=== PATIENT | male | born 1990 | race Caucasian/White ===

== ENCOUNTER 2020-04-27 20:52 | Emergency (ER) | payer SELFPAY ==
[~2020-04-27] VITALS: Ht 188 cm; Wt 100.0 kg
[2020-04-27 21:10] VITALS: BP 126/72
--- NOTE | 2020-04-27 21:17 | PHYS DOC ---
Past History Past Medical History: Anxiety, Depression Past Surgical History: Appendectomy Alcohol Use: None General Adult EDM: Chief Complaint: DEPRESSION HPI: HPI: "...I got exposed to smoke.. a couple years ago...But...I just need somewhere to sleep... I was at [facility] earlier... and they [facility]... but the [facility] is closed now... I get anxiety.. especially after I do Meth... which I did earlier .." Patient is a 29 year old male who presents with above hx and complaints he is home less and needs a place to sleep. Patient does admit to methamphetamine abuse. Does have history of ADHD, autism, and prior poly-substance abuse. Patient reportedly seen at [facility] earlier in the day and he was advised to follow-up with counseling center and [facility]. Patient states by the time he arrived at shelters they had closed the doors for the night. Patient denies any recent trauma. Patient does smoke tobacco. Patient denies suicidal ideation or homicidal ideation. Does state he gets depressed and that is why he uses methamphetamine. Review of Systems: Review of Systems: Constitutional: Denies fever or chills Eyes: Denies change in visual acuity HENT: Denies nasal congestion or sore throat Respiratory: Denies cough or shortness of breath Cardiovascular: Denies chest pain or edema GI: Denies abdominal pain, nausea, vomiting, bloody stools or diarrhea : Denies dysuria Musculoskeletal: Denies back pain or joint pain Integument: Denies rash Neurologic: Denies headache, focal weakness or sensory changes Endocrine: Denies polyuria or polydipsia Lymphatic: Denies swollen glands Psychiatric: Denies depression or anxiety Heart Score: Risk Factors: Risk Factors: DM, Current or recent (<one month) smoker, HTN, HLP, family history of CAD, obesity. Risk Scores: Score 0 - 3: 2.5% MACE over next 6 weeks - Discharge Home Score 4 - 6: 20.3% MACE over next 6 weeks - Admit for Clinical Observation Score 7 - 10: 72.7% MACE over next 6 weeks - Early Invasive Strategies Family History: Family History: Noncontributory Current Medications: Current Meds: See nursing for home meds Allergies: Allergies: Allergies Coded Allergies Type Severity Reaction Last Updated Verified No Known Drug Allergies 04/27/20 No Physical Exam: PE: Constitutional: no acute distress, non-toxic appearance. [] HENT: Normocephalic, atraumatic, bilateral external ears normal, oropharynx moist, no oral exudates, nose normal. Poor dentition Eyes: PERRLA, EOMI, conjunctiva normal, no discharge. [] Neck: Normal range of motion, no tenderness, supple, no stridor. [] Cardiovascular:Heart rate regular rhythm, no murmur [] Lungs & Thorax: Bilateral breath sounds equal apex with scattered wheezes on auscultation [] Abdomen: Bowel sounds normal, soft, no tenderness, no masses, no pulsatile m asses. [] Skin: Warm, dry, no erythema, no rash. [] Back: No tenderness, no CVA tenderness. [] Extremities: No tenderness, no cyanosis, no clubbing, ROM intact, no edema. No cording appreciated Neurologic: Alert and oriented X 3, normal motor function, normal sensory function, no focal deficits noted. [] Psychologic: Affect anxious, judgement normal, mood normal. [] Denies suicidal or homicidal ideation EKG: EKG: [] Radiology/Procedures: Radiology/Procedures: [] Course & Med Decision Making: Course & Med Decision Making Pertinent Labs and Imaging studies reviewed. (See chart for details) Pt. refused labs draws or urine sample . States he just wants to sleep in a cool place tonight. Patient encouraged to follow-up at counseling center. Patient encouraged to stop smoking. Patient encouraged to stop use of methamphetamine. Patient follow-up primary care. Impression: 1. Anxiety 2. Polysubstance Abuse 3. Hx. ADHD 4, Hx. of Autism spectrum disorder. 5. Hx. of Depression [] Dragon Disclaimer: Dragon Disclaimer: This electronic medical record was generated, in whole or in part, using a voice recognition dictation system. Departure Departure: Disposition: 01 HOME/RESIDENCE PRIOR TO ADM Condition: STABLE Justification of Admission: Justification of Admission: Justification of Admission Dx: N/A Dragon Disclaimer This chart was dictated in whole or in part using Voice Recognition software in a busy, high-work load, and often noisy Emergency Department environment. It may contain unintended and wholly unrecognized errors or omissions. TIERA LEMONS MD Apr 27, 2020 21:16
== END 2020-04-27 21:54 | disposition left against medical advice (07) ==
LOC: ER 20:52
DX: F41.9 Anxiety disorder, unspecified (principal); F32.9 Major depressive disorder, single episode, unspecified; F90.9 Attention-deficit hyperactivity disorder, unspecified type; F19.10 Other psychoactive substance abuse, uncomplicated; F84.0 Autistic disorder; F15.10 Other stimulant abuse, uncomplicated; Z59.0 Homelessness
CPT/HCPCS: 99283

== ENCOUNTER 2020-04-28 07:05 | Emergency (ER) | payer SELFPAY ==
[~2020-04-28] VITALS: Ht 195.6 cm; Wt 90.1 kg
[2020-04-28 07:29] VITALS: BP 127/85
[2020-04-28 07:55] LABS: BASO % 1 % (0-3); EOS # 0.2 x10^3/uL (0.0-0.7); EOS % 4 % (0-3); HEMATOCRIT 38.7 % (39.0-53.0); HEMOGLOBIN 13.3 g/dL (13.0-17.5); LYMPH # 1.8 x10^3/uL (1.0-4.8); LYMPH % 28 % (24-48); MEAN CORPUSCULAR HEMOGLOBIN 29 pg (25-35); MEAN CORPUSCULAR HGB CONC 34 g/dL (31-37); MEAN CORPUSCULAR VOLUME 86 fL (79-100); MONO # 0.5 x10^3/uL (0.0-1.1); MONO % 8 % (0-9); NEUT # 3.6 x10^3uL (1.8-7.7); NEUT % 59 % (31-73); PLATELET COUNT 264 x10^3/uL (140-400); RED BLOOD COUNT 4.52 x10^6/uL (4.30-5.70); RED CELL DISTRIBUTION WIDTH 15.4 % (11.5-14.5); WHITE BLOOD COUNT 6.2 x10^3/uL (4.0-11.0)
[2020-04-28 08:04] LABS: CALCIUM 8.9 mg/dL (8.5-10.1); CREATININE 1.3 mg/dL (0.7-1.3); GFR 65.7; POTASSIUM 3.4 mmol/L (3.5-5.1)
[2020-04-28 08:11] LABS: ALBUMIN 3.9 g/dL (3.4-5.0); ALBUMIN/GLOBULIN RATIO 1.1 (1.0-1.7); TOTAL BILIRUBIN 0.7 mg/dL (0.2-1.0); TOTAL PROTEIN 7.5 g/dL (6.4-8.2)
[2020-04-28 08:27] LABS: AMPHETAMINE/METHAMPHETAMINE POS (NEG); BARBITURATES NEG (NEG); BENZODIAZEPINES NEG (NEG); CANNABINOIDS NEG (NEG); COCAINE NEG (NEG); METHADONE NEG (NEG); OPIATES NEG (NEG); PHENCYCLIDINE NEG (NEG)
--- NOTE | 2020-04-28 08:33 | PHYS DOC ---
Past History Past Medical History: Anxiety, Depression Past Surgical History: Appendectomy Alcohol Use: None General Adult EDM: Chief Complaint: SUICIDAL IDEATION HPI: HPI: Patient is a 29-year-old male who presented to ER by EMS due to suicidal ideation. Patient is homeless, he is said he been suicidal for about 2 years. Patient has been in and out of the ER at multiple hospital for the same problem. Patient was evaluated at [facility] last night for the same complaint, he was just discharged home from the ED there. Patient was sleeping in the parking lot, and then called EMS to take him here for evaluation. Patient is not very specific about his suicidal ideation. Patient did not have any specific plan. Patient had no access to gun. He is homeless, he lives in a homeless fdc. He denies any alcohol consumption recently. Patient is not on any medication for psychiatric problem. Review of Systems: Review of Systems: Constitutional: Denies fever or chills Eyes: Denies change in visual acuity HENT: Denies nasal congestion or sore throat Respiratory: Denies cough or shortness of breath Cardiovascular: Denies chest pain or edema GI: Denies abdominal pain, nausea, vomiting, bloody stools or diarrhea : Denies dysuria Musculoskeletal: Denies back pain or joint pain Integument: Denies rash Neurologic: Denies headache, focal weakness or sensory changes Endocrine: Denies polyuria or polydipsia Lymphatic: Denies swollen glands Psychiatric: Positive for depression, suicidal ideation. Heart Score: Risk Factors: Risk Factors: DM, Current or recent (<one month) smoker, HTN, HLP, family history of CAD, obesity. Risk Scores: Score 0 - 3: 2.5% MACE over next 6 weeks - Discharge Home Score 4 - 6: 20.3% MACE over next 6 weeks - Admit for Clinical Observation Score 7 - 10: 72.7% MACE over next 6 weeks - Early Invasive Strategies Allergies: Allergies: Allergies Coded Allergies Type Severity Reaction Last Updated Verified No Known Drug Allergies 04/27/20 No Physical Exam: PE: Constitutional: Well developed, well nourished, no acute distress, non-toxic appearance. [] HENT: Normocephalic, atraumatic, bilateral external ears normal, oropharynx moist, no oral exudates, nose normal. [] Eyes: PERRLA, EOMI, conjunctiva normal, no discharge. [] Neck: Normal range of motion, no tenderness, supple, no stridor. [] Cardiovascular:Heart rate regular rhythm, no murmur [] Lungs & Thorax: Bilateral breath sounds clear to auscultation [] Abdomen: Bowel sounds normal, soft, no tenderness, no masses, no pulsatile masses. [] Skin: Warm, dry, no erythema, no rash. [] Back: No tenderness, no CVA tenderness. [] Extremities: No tenderness, no cyanosis, no clubbing, ROM intact, no edema. [] Neurologic: Alert and oriented X 3, normal motor function, normal sensory function, no focal deficits noted. [] Psychologic: Affect normal, judgement normal, mood normal. Continues to endorse suicidal ideation but no specific plan. Current Patient Data: Labs: Laboratory Tests Test 04/28/20 07:20 White Blood Count 6.2 x10^3/uL (4.0-11.0) Red Blood Count 4.52 x10^6/uL (4.30-5.70) Hemoglobin 13.3 g/dL (13.0-17.5) Hematocrit 38.7 % (39.0-53.0) L Mean Corpuscular Volume 86 fL (79-100) Mean Corpuscular Hemoglobin 29 pg (25-35) Mean Corpuscular Hemoglobin Concent 34 g/dL (31-37) Red Cell Distribution Width 15.4 % (11.5-14.5) H Platelet Count 264 x10^3/uL (140-400) Neutrophils (%) (Auto) 59 % (31-73) Lymphocytes (%) (Auto) 28 % (24-48) Monocytes (%) (Auto) 8 % (0-9) Eosinophils (%) (Auto) 4 % (0-3) H Basophils (%) (Auto) 1 % (0-3) Neutrophils # (Auto) 3.6 x10^3uL (1.8-7.7) Lymphocytes # (Auto) 1.8 x10^3/uL (1.0-4.8) Monocytes # (Auto) 0.5 x10^3/uL (0.0-1.1) Eosinophils # (Auto) 0.2 x10^3/uL (0.0-0.7) Basophils # (Auto) 0.0 x10^3/uL (0.0-0.2) Sodium Level 137 mmol/L (136-145) Potassium Level 3.4 mmol/L (3.5-5.1) L Chloride Level 98 mmol/L (98-107) Carbon Dioxide Level 30 mmol/L (21-32) Anion Gap 9 (6-14) Blood Urea Nitrogen 18 mg/dL (8-26) Creatinine 1.3 mg/dL (0.7-1.3) Estimated GFR (Cockcroft-Gault) 65.7 BUN/Creatinine Ratio 14 (6-20) Glucose Level 91 mg/dL (70-99) Calcium Level 8.9 mg/dL (8.5-10.1) Total Bilirubin 0.7 mg/dL (0.2-1.0) Aspartate Amino Transferase (AST) 23 U/L (15-37) Alanine Aminotransferase (ALT) 29 U/L (16-63) Alkaline Phosphatase 97 U/L (46-116) Total Protein 7.5 g/dL (6.4-8.2) Albumin 3.9 g/dL (3.4-5.0) Albumin/Globulin Ratio 1.1 (1.0-1.7) Urine Opiates Screen Neg (NEG) Urine Methadone Screen Neg (NEG) Urine Barbiturates Neg (NEG) Urine Phencyclidine Screen Neg (NEG) Urine Amphetamine/Methamphetamine Pos (NEG) Urine Benzodiazepines Screen Neg (NEG) Urine Cocaine Screen Neg (NEG) Urine Cannabinoids Screen Neg (NEG) Urine Ethyl Alcohol Neg (NEG) Vital Signs: Vital Signs Date Time Temp Pulse Resp B/P (MAP) Pulse Ox O2 Delivery O2 Flow Rate FiO2 04/28/20 07:29 97.3 78 18 127/85 (99) 94 Room Air EKG: EKG: [] Radiology/Procedures: Radiology/Procedures: [] Course & Med Decision Making: Course & Med Decision Making Pertinent Labs and Imaging studies reviewed. (See chart for details) Patient was evaluated by tele-psych screener, recommended discharge home. Patient was given resource information about detox for substance abuse, psychiatric centers. Dragon Disclaimer: Dragon Disclaimer: This electronic medical record was generated, in whole or in part, using a voice recognition dictation system. Departure Departure: Impression: Primary Impression: Suicidal ideation Additional Impressions: Homeless single person Substance abuse Disposition: HOME/RESIDENCE PRIOR TO ADM Condition: STABLE Referrals: PCP,NO (PCP) Patient Instructions: Substance Abuse-Brief, Suicidal Feelings, How to Help Yourself Justification of Admission: Justification of Admission: Justification of Admission Dx: N/A JAMARI BAKER DO Apr 28, 2020 08:33
[2020-04-28 08:50] LABS: ACETAMIN < 2.0 mcg/mL (10-30); ETHANOL < 10 mg/dL (0-10); SALIC < 2.8 mg/dL (2.8-20.0)
[2020-04-28 09:06] LABS: BACTERIA,URINE 0 /HPF (0-FEW); BILIRUBIN,URINE NEG (NEG); CLARITY,URINE CLEAR; COLOR,URINE AMBER; GLUCOSE,URINE NEG (NEG); NITRITE,URINE NEG (NEG); RBC,URINE OCC /HPF (0-2); SQUAMOUS EPITHELIAL CELL,UR FEW /LPF; UROBILINOGEN,URINE 0.2 mg/dL (0.2 mg/dL); WBC,URINE OCC /HPF (0-4)
== END 2020-04-28 12:35 | disposition home or self-care (01) ==
LOC: ER 07:05
DX: R45.851 Suicidal ideations (principal); F19.10 Other psychoactive substance abuse, uncomplicated; F41.9 Anxiety disorder, unspecified; F32.9 Major depressive disorder, single episode, unspecified; Z59.0 Homelessness
CPT/HCPCS: 36415; 80053; 80307; 80329; 81001; 85025; 99285; G0480; 51702

== ENCOUNTER 2020-09-29 21:46 | Emergency (ER) | payer SELFPAY ==
[~2020-09-29] VITALS: Ht 195.6 cm; Wt 100.0 kg
--- NOTE | 2020-09-29 22:45 | PHYS DOC ---
Past History Past Medical History: Anxiety, Depression Past Surgical History: Appendectomy Alcohol Use: None General Adult EDM: Chief Complaint: OTHER COMPLAINTS HPI: HPI: Patient is a 29-year-old male coming in for social issues. Called EMS from a gas station but has no emergent medical complaints. Patient has been banned from the local homeless assisted per EMS and confirmed by calling assisted. He has no history of amphetamine use. Patient states he has nowhere to stay and is very cold outside and wanted to come to the emergency department to talk to a 7th grade social studies teacher about his living situation and getting into a drug rehab facility. Review of Systems: Review of Systems: Constitutional: Denies fever or chills Eyes: Denies change in visual acuity HENT: Denies nasal congestion or sore throat Respiratory: Denies cough or shortness of breath Cardiovascular: Denies chest pain or edema GI: Denies abdominal pain, nausea, vomiting, bloody stools or diarrhea : Denies dysuria Musculoskeletal: Denies back pain or joint pain Integument: Denies rash Neurologic: Denies headache, focal weakness or sensory changes Endocrine: Denies polyuria or polydipsia Lymphatic: Denies swollen glands Psychiatric: Denies depression or anxiety Allergies: Allergies: Allergies Coded Allergies Type Severity Reaction Last Updated Verified No Known Drug Allergies 04/27/20 No Physical Exam: PE: Constitutional: Well developed, well nourished, no acute distress, non-toxic appearance. [] HENT: Normocephalic, atraumatic, bilateral external ears normal, oropharynx moist, no oral exudates, nose normal. [] Eyes: PERRLA, EOMI, conjunctiva normal, no discharge. [] Neck: Normal range of motion, no tenderness, supple, no stridor. [] Cardiovascular:Heart rate regular rhythm, no murmur [] Lungs & Thorax: Bilateral breath sounds clear to auscultation [] Abdomen: Bowel sounds normal, soft, no tenderness, no masses, no pulsatile masses. [] Skin: Warm, dry, no erythema, no rash. [] Back: No tenderness, no CVA tenderness. [] Extremities: No tenderness, no cyanosis, no clubbing, ROM intact, no edema. [] Neurologic: Alert and oriented X 3, normal motor function, normal sensory function, no focal deficits noted. [] Psychologic: Affect normal, judgement normal, mood normal. [] EKG: EKG: [] Radiology/Procedures: Radiology/Procedures: [] Heart Score: Risk Factors: Risk Factors: DM, Current or recent (<one month) smoker, HTN, HLP, family history of CAD, obesity. Risk Scores: Score 0 - 3: 2.5% MACE over next 6 weeks - Discharge Home Score 4 - 6: 20.3% MACE over next 6 weeks - Admit for Clinical Observation Score 7 - 10: 72.7% MACE over next 6 weeks - Early Invasive Strategies Course & Med Decision Making: Course & Med Decision Making Patient was talking to admitting office escort from an organization of facilitates rehab placement, he stated that if he was discharged he would likely kill himself. When questioned directly what he would do if he was discharged without placement he states he would kill himself because he does not know what else to do. Medically cleared for psychiatric evaluation of SI Patient was speaking to psychiatric screener stated that he just wants help with housing. Has never rented a place or had his name on a rental property and does not know how to go about doing it. Patient states he gets a disability check monthly. He has frequently been calling EMS at night to the hospital due to the cold weather. Offered to have 7th grade social studies teacher talk to him, patient likely needs guardianship or commodities requirements analyst. Patient states he does not want commodities requirements analyst. [] Franco Disclaimer: Franco Disclaimer: This electronic medical record was generated, in whole or in part, using a voice recognition dictation system. Departure Departure: Impression: Primary Impression: Homelessness Disposition: 01 DC HOME SELF CARE/HOMELESS Condition: STABLE Referrals: PCP,NO (PCP) Patient Instructions: Methamphetamine Abuse, Complications Additional Instructions: Referr to safety plan for follow-up options BRAVO SANTOS MD Sep 29, 2020 22:45
[2020-09-29 23:48] VITALS: BP 162/86
[2020-09-30 00:02] LABS: BASO # 0.1 x10^3/uL (0.0-0.2); BASO % 1 % (0-3); EOS # 0.2 x10^3/uL (0.0-0.7); EOS % 3 % (0-3); HEMATOCRIT 39.4 % (39.0-53.0); HEMOGLOBIN 12.9 g/dL (13.0-17.5); LYMPH % 31 % (24-48); MEAN CORPUSCULAR HEMOGLOBIN 28 pg (25-35); MEAN CORPUSCULAR HGB CONC 33 g/dL (31-37); MEAN CORPUSCULAR VOLUME 87 fL (79-100); MONO # 0.7 x10^3/uL (0.0-1.1); MONO % 11 % (0-9); NEUT # 3.6 x10^3uL (1.8-7.7); NEUT % 55 % (31-73); PLATELET COUNT 291 x10^3/uL (140-400); RED BLOOD COUNT 4.55 x10^6/uL (4.30-5.70); RED CELL DISTRIBUTION WIDTH 15.1 % (11.5-14.5); WHITE BLOOD COUNT 6.5 x10^3/uL (4.0-11.0)
[2020-09-30 00:12] LABS: BACTERIA,URINE 0 /HPF (0-FEW); BARBITURATES NEG (NEG); BENZODIAZEPINES NEG (NEG); BILIRUBIN,URINE NEG (NEG); CANNABINOIDS NEG (NEG); CLARITY,URINE CLEAR; COCAINE NEG (NEG); COLOR,URINE YELLOW; GLUCOSE,URINE NEG (NEG); METHADONE NEG (NEG); NITRITE,URINE NEG (NEG); OPIATES NEG (NEG); PHENCYCLIDINE NEG (NEG); RBC,URINE 0 /HPF (0-2); SQUAMOUS EPITHELIAL CELL,UR OCC /LPF; UROBILINOGEN,URINE 0.2 mg/dL (0.2 mg/dL); WBC,URINE OCC /HPF (0-4)
[2020-09-30 00:12] LABS: CALCIUM 8.9 mg/dL (8.5-10.1); CREATININE 1.3 mg/dL (0.7-1.3); GFR 65.7; POTASSIUM 4.1 mmol/L (3.5-5.1)
[2020-09-30 00:15] LABS: ETHANOL < 10 mg/dL (0-10); SALIC < 2.8 mg/dL (2.8-20.0)
[2020-09-30 00:15] LABS: AMPHETAMINE/METHAMPHETAMINE POS (NEG)
[2020-09-30 00:16] LABS: ACETAMIN < 2.0 mcg/mL (10-30)
[2020-09-30 00:17] LABS: ALBUMIN 4.1 g/dL (3.4-5.0); ALBUMIN/GLOBULIN RATIO 1.1 (1.0-1.7); TOTAL BILIRUBIN 0.4 mg/dL (0.2-1.0); TOTAL PROTEIN 7.7 g/dL (6.4-8.2)
== END 2020-09-30 04:19 | disposition home or self-care (01) ==
LOC: ER 21:46
DX: Z59.0 Homelessness (principal); F41.9 Anxiety disorder, unspecified; F32.9 Major depressive disorder, single episode, unspecified
CPT/HCPCS: 36415; 80053; 80307; 80329; 81001; 85025; 99283; G0480

== ENCOUNTER 2020-09-30 06:10 | Emergency (ER) | payer SELFPAY ==
[~2020-09-30] VITALS: Ht 195.6 cm; Wt 100.0 kg
--- NOTE | 2020-09-30 06:32 | PHYS DOC ---
Past History Past Medical History: Anxiety, Other Additional Past Medical Histor: autism Past Surgical History: Appendectomy Alcohol Use: Heavy Adult General HPI HPI Patient is a 29-year-old male presenting via EMS for mental health issues. Was recently discharged from our facility less than 1 hour ago, states he walked to local [employer] [address] and felt the need to call EMS because he was cold and wanted inpatient placement for psychiatric care. He is unable to disclose what psychiatric conditions he has. States he has history of suicidal ideation but denies any active homicidal and/or suicidal ideation at this time. States all homeless shelters and area are closed, states he was recently kicked out of one of the homeless shelters here in town. He has nowhere to go, he is wanting inpatient psychiatric treatment. He is not interested in establishing care with local [facility] in outpatient setting.denies any medication and/or illicit drug abuse since discharge less than 1 hour ago Review of Systems Review of Systems Fourteen body systems of review of systems have been reviewed. See HPI for pertinent positives and negative responses, other pedraza all other systems are negative, non-pertinent or non-contributory Allergies Allergies Allergies Coded Allergies Type Severity Reaction Last Updated Verified No Known Drug Allergies 04/27/20 No Physical Exam Physical Exam Constitutional: Well developed, well nourished, no acute distress, non-toxic appearance. HENT: Normocephalic, atraumatic, bilateral external ears normal, oropharynx moist, no oral exudates, nose normal. Eyes: PERRLA, EOMI, conjunctiva normal, no discharge. Neck: Normal range of motion, no tenderness, supple, no stridor. Cardiovascular: Heart rate regular, sinus rhythm, no murmurs rubs or gallops Lungs & Thorax: Bilateral breath sounds clear to auscultation Abdomen: Bowel sounds normal, soft, no tenderness, no masses, no pulsatile masses. Nonsurgical abdomen, no peritoneal signs Skin: Warm, dry, no erythema, no rash. Back: No tenderness, no CVA tenderness. Extremities: No tenderness, no cyanosis, no clubbing, ROM intact, no edema. Neurologic: Alert and oriented X 3, grossly normal motor & sensory function, no focal deficits noted. Psychologic: Flat affect, judgement normal, depressed mood Current Patient Data Vital Signs Vital Signs Date Time Temp Pulse Resp B/P (MAP) Pulse Ox O2 Delivery O2 Flow Rate FiO2 09/30/20 06:10 97.8 60 18 121/69 (86) 99 Room Air EKG EKG [] Radiology/Procedures Radiology/Procedures [] Heart Score Risk Factors: Risk Factors: DM, Current or recent (<one month) smoker, HTN, HLP, family history of CAD, obesity. Risk Scores: Risk Factors: DM, Current or recent (<one month) smoker, HTN, HLP, family history of CAD, obesity. Course & Med Decision Making Course & Med Decision Making Patients history and exam consistent with grossly exaggerated physical or psychological symptoms. Patient has obvious incentives for secondary gain including half-way, attention, and obtaining drugs. No specific acute medical concerns at this time. No e/o serious bacterial illness. Prior work-up reviewed and discussed with patient Local guidance center called and case discussed. I expressed my concern for potential malingering. Patient has no indication for inpatient psychiatric transfer. He needs outpatient follow-up. Safety plan reviewed, guidance center advised us to relay that they can see him this morning at 8 AM for walk-in appointment. I feel this is appropriate. This was relayed to patient who is understandable that he did not meet inpatient transfer at this time and that he would benefit greatly from outpatient follow-up. Disposition: Discharge with instructions for appropriate signs and symptoms to be aware of and instructions on proper over the counter medication use for pain after discharge. Patient was given numerous resources for half-way options for review Dragon Disclaimer Dragon Disclaimer This electronic medical record was generated, in whole or in part, using a voice recognition dictation system. Departure Departure: Impression: Primary Impression: History of behavioral and mental health problems Disposition: 01 DC HOME SELF CARE/HOMELESS Condition: GOOD Referrals: PCP,NO (PCP) Additional Instructions: As discussed prior to ER departure, please follow-up with local guidance center. Your safety plan has been updated, you can be seen at their facility starting at 8 AM this morning. Please return to our ER if any concerning signs or symptoms present prior to outpatient follow-up. Is a pleasure to take care of you and I wish you the best going forward! MAVERICK LOPEZ DO Sep 30, 2020 06:32
[2020-09-30 07:17] VITALS: BP 148/67
== END 2020-09-30 07:25 | disposition home or self-care (01) ==
LOC: ER 06:10
DX: F99 Mental disorder, not otherwise specified (principal); F41.9 Anxiety disorder, unspecified; F10.20 Alcohol dependence, uncomplicated; Z59.0 Homelessness; Y90.9 Presence of alcohol in blood, level not specified
CPT/HCPCS: 99283